=== PATIENT | female | born 1980 | race Caucasian/White ===

== ENCOUNTER → 2017-09-30 08:41 | Outpatient (CLI) | payer OTHER, SELFPAY ==
--- NOTE | 2017-09-30 08:44 | DI.US.S_ITS ---
PROCEDURE: US THYROID INDICATIONS: THYROMEGALY TECHNIQUE: Real-time scanning was performed of the thyroid gland, with image documentation. COMPARISON: None. FINDINGS: Right: Thyroid lobe measures 4.8 x 1.3 x 1.6 cm, and is homogeneous in echotexture. Left: Thyroid lobe measures 5.1 x 1.1 x 1.7 cm, and is homogenous in echotexture. Isthmus: 2.5 mm thick. IMPRESSION: Unremarkable exam. Dictated by: Ese Frazier M.D. on 09/30/2017 at 17:07 Approved by: Ese Frazier M.D. on 09/30/2017 at 17:08
[2017-09-30 09:44] LABS: Add Manual Diff / Slide Review NO; Basophils Percent Auto 0.5 % (0-2); Eosinophils Percent Auto 2.3 % (2-4); Hematocrit 40.8 % (36-46); Hemoglobin 14.2 g/dL (12.0-16.0); Lymphocytes Percent Auto 19.1 % (25-40); Mean Corpuscular HGB Conc 34.8 % (30-36); Mean Corpuscular Hemoglobin 30.6 PG (26-34); Monocytes Percent Auto 11.7 % (3-14); Neutrophils Absolute Auto 6400 /uL (3000-5900); Neutrophils Percent Auto 66.4 % (50-75); Platelet Count 241 X10^3/uL (150-400); Red Blood Cell Count 4.63 X10^6/uL (4.0-5.2); White Blood Cell Count 9.7 X10^3/uL (4.5-11.0)
[2017-09-30 10:29] LABS: Vitamin D 25 Hydroxy (D3) 41.5 ng/mL (30.0-100.0)
[2017-09-30 10:41] LABS: TSH w/ Reflex to FT4 1.53 uIU/mL (0.47-4.68)
== END ==
PROVIDERS: PCP Family Medicine; Visit Provider Family Medicine
DX: E01.0 Iodine-deficiency related diffuse (endemic) goiter (principal); F32.9 Major depressive disorder, single episode, unspecified
CPT/HCPCS: 36415; 76536; 82306; 84443; 85025